=== PATIENT | male | born 1965 | race Caucasian/White ===

== ENCOUNTER 2019-07-14 15:16 | Outpatient (CLI) | payer OTHER, SELFPAY ==
--- NOTE | 2019-07-14 15:45 | USCV_ITS ---
Sunil Domingo Age: 54 Gender: M : 1965 Exam Date: 07/14/2019 15:29 Ordering Phys: Ida EvansP XX Technologist: NOREEN OLSEN Exam Location: [facility] – [place] Indication: PERIPHERAL EDEMA PROCEDURES: Venous duplex imaging was performed in bilateral lower extremities. The following venous structures were evaluated: common femoral vein, profunda vein, proximal portion of the greater saphenous vein, superficial femoral vein, and the popliteal vein. In addition, the posterior tibial and peroneal trunk were evaluated. Serial compression, augmentation maneuvers, and spectral Doppler flow evaluation were performed. FINDINGS: Normal 2-D Doppler and augmentation and compressibility throughout the lower extremity venous structures. Additional imaging through the proximal calf veins also reveals no thrombus. Limited evaluation of the greater saphenous vein is patent with no thrombus.. CONCLUSIONS No evidence of right lower extremity DVT. No evidence of left lower extremity DVT. Mustapha Greenberg MD (Electronically Signed) Final Date: 16 July 2019 13:23 S
== END 2019-07-14 15:17 | disposition home or self-care (01) ==
PROVIDERS: PCP Nurse Practitioner Family; Visit Provider Nurse Practitioner Family
DX: R60.9 Edema, unspecified (principal)
CPT/HCPCS: 93970

== ENCOUNTER → 2020-03-25 11:53 | Outpatient (BNVA) | payer OTHER, SELFPAY | PROVIDERS: PCP Nurse Practitioner Family; Visit Provider Family Medicine | DX: Z11.59 Encounter for screening for other viral diseases (principal) | CPT/HCPCS: 87635 ==

== ENCOUNTER 2020-03-30 06:04 | Day surgery (SDC) | payer OTHER, SELFPAY ==
[2020-03-26 08:55] VITALS: BMI 43.7
[2020-03-30 06:15] VITALS: BP 139/104; PULSE 72; RESP 18; TEMP 36.3; O2SAT 97
[2020-03-30] MEDS: sodium chloride 0.9% 1,000 ML 30 ML IV (06:28)
--- NOTE | 2020-03-30 06:34 | ANES.PREANE2 ---
Pre-Anesthetic Assessment Pre-Anesthetic Assessment: Height/Weight: Height 1.91 m Weight 158.757 kg Temp Pulse Resp BP Pulse Ox 97.3 F L 72 18 139/104 97 03/30/20 06:15 03/30/20 06:15 03/30/20 06:15 03/30/20 06:15 03/30/20 06:15 Preop Diagnosis: screening Proposed Procedure: Operation Date: 03/30/20 07:00 Proposed Procedures p Colonoscopy(Not Applicable) - Syed Turner MD Familial anesthetic complications: none Was Beta Ryne taken within 24 hours: N/A Last intake: Intake Last Liquid Date 03/29/20 Last Liquid Time 19:00 Last Solid Date 03/28/20 Last Solid Time 16:00 Social: Social History: No alcohol and No tobacco Exam: Pre-Anes Outpt Exam: alert, oriented x 3, clear to auscultation bilaterally and regular rate & rhythm Airway: Cervical ROM: WNL MP: 4 Dentition: False Pulmonary: Pulmonary: Sleep apnea CV/HEM: CV/HEM: HTN Metabolic: Metabolic: Morbid obesity Anesthetic Plan: ASA status: 2 Anesthesia: MAC Risk of > 500 ml blood loss (7ml/kg in children): No Meds/Allergies Current Medications: Current Medications Generic Name Dose Route Start Last Admin Trade Name Freq PRN Reason Stop Dose Admin Sodium Chloride 1,000 mls @ 30 ml s/hr 03/30/20 06:15 03/30/20 06:28 Sodium Chloride 0.9% IV 03/31/20 06:14 30 mls/hr .Q24H BLANCA Administration Data Anesthesia Cardiac Studies: No Data to Display
--- NOTE | 2020-03-30 06:40 | W.PM.OPSUD ---
Surgery/Procedure H&P Update DATE OF PROCEDURE: March 30, 2020 DATE H&P PERFORMED: 03/17/20 H&P UPDATE INFORMATION: I have reviewed H&P completed within last 30 days, I have examined patient prior to procedure, No changes to prior documentation and H&P to be scanned into chart PREOP DIAGNOSIS: screening PLANNED PROCEDURE: Operation Date: 03/30/20 07:00 Proposed Procedures p Colonoscopy(Not Applicable) - Syed Turner MD Related Problem List Diagnoses (1) Encounter for screening colonoscopy:
[2020-03-30 07:23] VITALS: BP 130/82; PULSE 67; RESP 18; TEMP 36.1; O2SAT 95
[2020-03-30 07:31] VITALS: BP 109/63; PULSE 63; RESP 18; TEMP 36.1; O2SAT 97
--- NOTE | 2020-03-30 07:50 | ANE.PACU2 ---
Inpatient post-anesthesia follow up: Airway intact: Yes Vital signs: Temperature 97.0 F Pulse Rate 63 Respiratory Rate 18 Blood Pressure 109/63 Pulse Oximetry 97 Oxygen Delivery Me thod Room Air Oxygen Flow Rate Fraction of Inspir ed Oxygen Hydration adequate: Yes Nausea and vomiting: Yes Pain level: 1 Mental status: Baseline
== END 2020-03-30 07:51 | disposition home or self-care (01) ==
PROVIDERS: Visit Provider Family Medicine
PROC: 0DJD8ZZ Inspection of Lower Intestinal Tract, Via Natural or Artificial Opening Endoscopic (ICD-10-PCS; CPT 45378; principal; 2020-03-30 07:00)
DX: Z12.11 Encounter for screening for malignant neoplasm of colon (principal); K63.5 Polyp of colon; E66.01 Morbid (severe) obesity due to excess calories; Z68.41 Body mass index [BMI] 40.0-44.9, adult; I10 Essential (primary) hypertension; G47.33 Obstructive sleep apnea (adult) (pediatric); E78.5 Hyperlipidemia, unspecified
CPT/HCPCS: 12345; 45384; 88305; J7030